=== PATIENT | female | born 1990 | race Caucasian/White ===

== ENCOUNTER 2016-06-04 12:08 | Day surgery (SDC) | payer OTHER ==
[~2016-06-04] VITALS: Ht 144.8 cm; Wt 59.4 kg
[~2016-06-04 12:08] MED LIST: HYDR-902 PO; ONDA4TAB14 PO
[2016-06-04 13:48] VITALS: Ht 144.8 cm; Wt 59.4 kg
[2016-06-04] MEDS ORDERED: IBUP800T25 PO (13:56)
[2016-06-04] MEDS ORDERED: ALPR0.5T PO (13:56)
[2016-06-04] MEDS ORDERED: ALPR1TAB2 PO (13:56)
[2016-06-04] MEDS ORDERED: DOCU100C26 PO (13:56)
[2016-06-04] MEDS ORDERED: CITA20TA11 PO (13:56)
[2016-06-04 14:24] VITALS: BP 111/73; PULSE 67; RESP 28
[2016-06-04] MEDS ORDERED: LIDOCAINE 2% (SDV) 5 ML INJ ONE (14:35)
[2016-06-04] MEDS ORDERED: PROPOFOL 40 ML ONE (14:35)
[2016-06-04 15:40] VITALS: BP 102/65; PULSE 76; RESP 18
--- NOTE | 2016-06-04 18:29 | GILP ---
DATE OF PROCEDURE: 06/04/2016 NAME OF PROCEDURE: Esophagogastroduodenoscopy and biopsy. SURGEON: Denny Castro MD PREOPERATIVE DIAGNOSIS: Abdominal pain. POSTOPERATIVE DIAGNOSES: 1. Small hiatal hernia. 2. Gastroesophageal reflux disease. 3. Gastritis. 4. Gastric mucosal biopsies were taken for Helicobacter pylori test. INDICATION FOR THE PROCEDURE: Ms. Sharron Recinos is a 26-year-old female patient who had uppe r abdominal pain, not responding to therapy. Patient was scheduled for endoscopic examination for f urther evaluation. The procedure and possible complications are well explained to the patient, she understood and conse nted to the procedure. DESCRIPTION OF PROCEDURE: Under the influence of anesthesia, the gastroscope was carefully introduc ed into the esophagus and under direct vision, it was advanced to the stomach and to the pylorus, in to the duodenal bulb and descending duodenum. FINDINGS: ESOPHAGUS: The patient had small hiatal hernia and gastroesophageal reflux disease. STOMACH: She had gastritis. Gastric mucosal biopsies were taken for H. pylori test. DUODENUM: Normal. She tolerated the procedure very well and there was no complication from the procedures. At the end of the procedures, she was awake with stable vital signs and she was discharged home to the care of her family. IMPRESSION: Please see postoperative diagnoses. PLAN: 1. Omeprazole 40 mg p.o. q.a.m. 2. Bentyl 10 mg p.o. t.i.d. a.c., 3. Await H. pylori test report. Dictated By: DENNY HERRMANN/TATI Conf#: [id number] DID#: [id number] CC: DENNY CASTRO MD;*EndCC*
--- NOTE | 2016-06-05 11:55 | CONS ---
DATE OF ADMISSION: 06/04/2016 DATE OF CONSULTATION: TYPE OF CONSULTATION: Preoperative gastroenterology. Dear Dr. Mccann: I thank you very much for this kind referral. HISTORY OF PRESENT ILLNESS: Ms. Sharron Webber is a 26-year-old female patient who has been ref erred to me for further evaluation of abdominal pain. The patient states she has pain in the epigas tric region and also the lower part of the abdomen. The patient went to the emergency room last fri and she had abdominal CT scan done. The patient was noted to have renal stones. There was no ot her significant abnormality. There is no past history of peptic ulcer disease. She has been taking ibuprofen. She also takes [place] for the abdominal pain. There is no history of gallstones. She d oes not have any fever, chills, or jaundice. There is no history of liver disease. She denies any change in the bowel habit or rectal bleeding. There is no past history of inflammatory bowel diseas e. She is not a hypertensive or diabetic. She does not have any heart disease or lung problem. Th ere is no history of kidney disease other than renal stones. She has anxiety disorder. She is on X anax and Celexa. SOCIAL HISTORY: She is a nonsmoker. She does not abuse alcohol. FAMILY HISTORY: Negative for gastrointestinal tract neoplasm. ALLERGIES: THERE IS NO HISTORY OF SIGNIFICANT DRUG ALLERGY. MEDICATIONS: 1. Ibuprofen. 2. [place]. 3. Xanax. 4. Celexa. PHYSICAL EXAMINATION VITAL SIGNS: She is 4 feet 9 inches tall and she weighs 135 pounds. HEART: Examination of the heart reveals normal first and second heart sounds. LUNGS: Clear. ABDOMEN: Distended. Liver and spleen are not palpable. There are no masses. The patient appears to have ascites. Normal bowel sounds are heard. CENTRAL NERVOUS SYSTEM: Does not reveal any focal neurological deficit. PLAN: 1. Omeprazole 40 mg p.o. q.a.m. 2. Abdominal ultrasound to rule out ascites. 3. After ultrasound, the patient will need endoscopic examination to rule out peptic ulcer disease. The procedure and possible complications are well explained to the patient. She understands and con sents to the procedures. Because of the anxiety, the patient needs monitored anesthesia care for the procedure. I thank you once again. With warmest personal regards, Dictated By: DENNY HERRMANN/TATI ZHU: 05/08/2016 18:53:50 Conf#: [id number] DID#: [id number] CC: DENNY CASTRO MD;*EndCC*
== END 2016-06-04 16:06 | disposition home or self-care (01) ==
LOC: GIL 12:08
PROVIDERS: ATTEND Internal Medicine Gastroenterology
DX: K44.9 Diaphragmatic hernia without obstruction or gangrene (principal); K21.9 Gastro-esophageal reflux disease without esophagitis; K29.70 Gastritis, unspecified, without bleeding
CPT/HCPCS: 43239; 84703; 87081; Z7610

== ENCOUNTER 2017-11-22 05:11 | Inpatient (IN) | END 2017-11-25 19:50 | disposition home or self-care (01) | DRG 690 ==

== ENCOUNTER 2017-12-11 17:45 | Emergency (ER) | END 2017-12-11 21:38 | disposition home or self-care (01) ==